=== PATIENT | female | born 1960 | race Caucasian/White ===

== ENCOUNTER 2016-08-08 09:00 | Emergency (ER) | payer OTHER ==
[~2016-08-08] VITALS: Ht 177.8 cm; Wt 90.9 kg
[~2016-08-08 09:00] MED LIST: ACET-2605 PO; CLIN-78 PO; HYDR-4003 PO; IBUP200C PO; MELO-259 PO
[2016-08-08 09:17] VITALS: BP 139/83; PULSE 74; RESP 14; O2SAT 100
--- NOTE | 2016-08-08 10:23 | ED.REPORT ---
HPI- Female Date of Service Aug 08, 2016 ED Provider: Sánchez Montelongo MD Patient presents with a 3 day history of progressing fullness and pressure in the vaginal area. Previously she had a colonoscopy which revealed a prolapsed bowel. She was sent to a specialist in [place] who saw the prolapse and was not concerned that time that it would progress. Although he stated that if progression became noted that the patient should follow-up with him. At this time she has no fevers chills nausea vomiting although she does have some abdominal pain on palpation. Nursing Notes Stated Complaint: VAGINAL ISSUE Chief Complaint: Female Abdominal Pain Nursing Notes Reviewed: Yes Allergies: Coded Allergies: No Known Allergies (Unverified , 08/08/16) Scheduled Acetaminophen/Diphenhydramine (Tylenol Pm Ex-Strength Caplet) 500 Mg-25 Mg Tablet 2 EACH PO HS Clindamycin (Clindamycin) 300 Mg Capsule 300 MG PO QID Scheduled PRN Hydrocodone-Acetaminophen 5-325 mg (Hydrocodone-Acetaminophen 5-325 mg) 1 Each Tablet 1 TABLET PO Q8H PRN PRN For Pain Ibuprofen (Ibuprofen) 200 Mg Capsule 200 MG PO QID PRN PRN For Pain Meloxicam (Meloxicam) 7.5 Mg Tablet 7.5-15 MG PO BID PRN PRN PRN General Time Seen by MD: 09:30 Chief Complaint Dysuria Hx Obtained From: Patient Sudden in Onset?: No Onset Occurred: 1 day ago Context of Onset: Spontaneous Symptom Duration: Since onset Quality: Fullness, Pressure Radiation: Does not radiate Severity: Current: No pain currently Past Medical History Past Medical History carpal tunnel Past Surgical History right ankle surgery nose reconstruction Recent Hep C diagnosis recurring cellulitis of the R lower limb Reports: Appendectomy, Cholecystectomy, Hysterectomy, Tonsillectomy Reports: Tubal ligation Smoking History Current Every Day Smoker 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 Physical Exam On pelvic exam grade 2 rectocele with some pain on palpation, however no redness swelling or other signs of infection this point. Initial Vital Signs Vital Signs (First) Date Time Temp Pulse Resp B/P Pulse Ox O2 Delivery O2 Flow Rate FiO2 08/08/16 09:17 35.6 74 14 139/83 100 Room Air General/Constitutional: Well-developed, Well-nourished Head / Eyes: Atraumatic, Normocephalic Respiratory: Breath sounds normal, Clear to auscultation, No respiratory distress Cardiovascular: Regular rate & rhythm, Heart sounds normal, Intact distal pulses Abdomen / GI: Soft, No guarding, No rebound, No distention Lymphatic: No lymphadenopathy Neurologic: Alert, Oriented, Nonfocal Psychiatric: Mood/affect normal, Behavior normal, Normal thought content Female Genitourinary: Atraumatic, No bleeding, No discharge, No foreign body Rectum / Perineum: No gross blood Rectum / Perineum Abnl: Positive: Hemorrhoid external Interpretation & Diagnostics Lab Results Interpretation Test 08/08/16 10:20 Urine Color Yellow (YELLOW) Urine Appearance Clear (CLEAR,HAZY) Urine pH 6.0 (5.0-8.0) Urine Specific [place] 1.015 (1.003-1.035) Urine Protein Negativemg/dL (NEG,TRACE) Urine Glucose (UA) Negativemg/dL (NEGATIVE) Urine Ketones Negativemg/dL (NEGATIVE) Urine Occult Blood Negative (NEGATIVE) Urine Nitrite Negative (NEGATIVE) Urine Bilirubin Negative (NEGATIVE) Urine Urobilinogen Normalmg/dL (NORMAL) Urine Leukocyte Esterase Small (NEGATIVE) Urine RBC 0-2/hpf (0-2) Urine WBC 0-5/hpf (0-5) Urine Epithelial Cells Occasional/hpf (NONE-MOD) Urine Crystals None seen (NONE SEEN) Urine Bacteria Few/hpf (NONE-FEW) Urine Hyaline Casts None/lpf (NONE) Urine Granular Casts None seen (NONE SEEN) Urine Waxy Casts None seen (NONE SEEN) Urine Red Blood Cell Casts None seen (NONE SEEN) Urine White Blood Cell Casts None seen (NONE SEEN) Urine Mucus None seen (None Seen) Urine Trichomonas None seen (NONE SEEN) Urine Yeast None (NONE SEEN) Urinalysis Comment None Urine Culture Reflexed Indicated Hold Urine Received (Received) Re-Eval/Medical Decision Med Decision/Clinical Course Pelvic exam reveals grade 2 rectocele. Palpation of the rectocele produced discomfort and was not reducible at this time. Patient was told to follow-up with previous specialist in [place] for resolution of rectocele. UA was ordered to rule out UTI since patient has urinary symptoms. Also post void residual volume ultrasound was ordered to ensure that the patient is adequately able to void completely. This showed 200 mL of residual volume, however it had been at least an hour since the patient had previously voided. Due to this and no concern for incontinence at this time Counseled Regarding: Diagnosis, Lab results, Need for follow-up, When/why to return to ED Discharge & Departure Shift Change Sign-Out Discussed Complaint(s): Yes Laboratory Evaluation: Back, reviewed by me Imaging Studies: Done, reviewed by me Impression: Primary Impression: Rectocele Disposition: Home Discharge Condition All VS Reviewed: Yes Condition: Stable Additional Instructions: Follow-up with specialist in [place] concerning rectocele (bowel in the vagina) Bladder scan some residual volume postvoid however we are not concerned for incontinence at this time. If symptoms become worse in you are unable to urinate please contact the emergency department soon as possible Referrals: Rui Garcia MD (PCP) Attending Statement Seen and examined with Dr Demarco on 08/08. Agree with above. Collin Demarco DO Aug 08, 2016 10:22 Sánchez Montelongo MD Aug 08, 2016 19:12
[2016-08-08 11:16] LABS: APPEARANCE,URINE CLEAR (CLEAR,HAZY); COLOR,URINE YELLOW (YELLOW); OCCULT BLOOD,URINE NEGATIVE (NEGATIVE); UROBILINOGEN,URINE NORMAL (NORMAL)
[2016-08-08 12:42] VITALS: BP 164/98; PULSE 76; RESP 15; O2SAT 100
== END 2016-08-08 12:21 | disposition home or self-care (01) ==
LOC: SED 09:00
DX: N81.6 Rectocele (principal); B19.20 Unspecified viral hepatitis C without hepatic coma; F17.200 Nicotine dependence, unspecified, uncomplicated; Z90.49 Acquired absence of other specified parts of digestive tract; Z90.710 Acquired absence of both cervix and uterus; Z98.51 Tubal ligation status; Z90.89 Acquired absence of other organs

== ENCOUNTER 2016-08-16 15:46 | Emergency (ER) | payer OTHER ==
[~2016-08-16] VITALS: Ht 180.3 cm; Wt 90.9 kg
[2016-08-16 15:50] VITALS: BP 155/103; PULSE 77; RESP 18; O2SAT 100
--- NOTE | 2016-08-16 16:42 | ED.REPORT ---
HPI-Extremity Problem Lower Date of Service Aug 16, 2016 ED Provider: Sánchez Montelongo MD The patient is a 56 year old female w/ a hx of right ankle surgery and recurrent staph infections who presents to the ED due to right ankle pain for the past few days. She has had staph 4 times previously, the last infection was in 2014. Associated symptoms include right ankle swelling, redness, and tenderness. She confirms that these symptoms are similar to her previous staph infections. She denies fever. Pt drove herself to the ED. She has a doctor's appointment on the of the month. She takes long acting morphine for pain. Nursing Notes Stated Complaint: RIGHT ANKLE PAIN Chief Complaint: Extremity Trauma Nursing Notes Reviewed: Yes Allergies: Coded Allergies: No Known Allergies (Unverified , 08/16/16) Scheduled Acetaminophen/Diphenhydramine (Tylenol Pm Ex-Strength Caplet) 500 Mg-25 Mg Tablet 2 EACH PO HS Clindamycin (Clindamycin) 300 Mg Capsule 300 MG PO QID Scheduled PRN Hydrocodone-Acetaminophen 5-325 mg (Hydrocodone-Acetaminophen 5-325 mg) 1 Each Tablet 1 TABLET PO Q8H PRN PRN For Pain Ibuprofen (Ibuprofen) 200 Mg Capsule 200 MG PO QID PRN PRN For Pain Meloxicam (Meloxicam) 7.5 Mg Tablet 7.5-15 MG PO BID PRN PRN PRN General Time Seen by MD: 16:41 Chief Complaint Ankle injury right Hx Obtained From: Patient Arrived By: Walk-in Onset Occurred: 3 days ago Symptom Duration: Since onset Location: : Ankle right Quality: Painful Severity: Current: Moderate Recent Healthcare: Recent doctor visit, Previous surgery Similar Sx Previous: Yes Past Medical History Past Medical History carpal tunnel Past Surgical History right ankle surgery nose reconstruction Recent Hep C diagnosis recurring cellulitis of the R lower limb Reports: Appendectomy, Cholecystectomy, Hysterectomy, Tonsillectomy Reports: Tubal ligation Smoking History Current Every Day Smoker 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 Physical Exam Initial Vital Signs Vital Signs (First) Date Time Temp Pulse Resp B/P Pulse Ox O2 Delivery O2 Flow Rate FiO2 08/16/16 15:50 36.8 77 18 155/103 100 08/16/16 17:50 Room Air Initial VS: Reviewed Right Leg / Calf: Positive: Swelling present..., Tenderness present... Right Ankle: Positive: Swelling present..., Tenderness present... right ankle exquisitely tender to touch superficial abscess overlying the lateral malleolus General/Constitutional: Awake, Alert, Cooperative Respiratory / Chest: Atraumatic, Breath sounds NL, Breath sounds = bilat, No respiratory distress Cardiovascular: Heart rate NL, Regular rhythm, Heart sounds NL, No gallop, No murmurs, No rubs Skin: Atraumatic, No rash Neurologic: Oriented X3, Speech NL, No motor deficits Head / Eyes: Atraumatic, Normocephalic, PERRL, EOMI Abdomen: Atraumatic, Soft, Non-tender Interpretation & Diagnostics Lab Results Interpretation Result Diagram: 08/16/16 1640 08/16/16 1640 Test 08/16/16 16:40 08/16/16 17:23 White Blood Count 4.3th/mm3 (3.8-10.1) Red Blood Count 3.96mil/mm3 (3.90-5.20) Hemoglobin 12.6g/dL (12.0-15.6) Hematocrit 37.0% (35.0-46.0) Mean Corpuscular Volume 93.4fL (81-100) Mean Corpuscular Hemoglobin 31.8pg (27.0-35.0) Mean Corpuscular Hemoglobin Concent 34.1% (32.0-37.0) Red Cell Distribution Width 12.8% (12.3-15.4) Platelet Count 98bil/L (150-400) Neutrophils (%) (Auto) 44.8% (40-74) Lymphocytes (%) (Auto) 42.4% (14-46) Monocytes (%) (Auto) 11.7% (4-12) Eosinophils (%) (Auto) 0.7% (0-5) Basophils (%) (Auto) 0.2% (0-3) Erythrocyte Sedimentation Rate 8mm/hr (0-40) Prothrombin Time 12.7sec (8.1-12.5) Prothromb Time International Ratio 1.18ratio Sodium Level 141mEq/L (134-144) Potassium Level 4.9mEq/L (3.5-5.2) Chloride Level 105mEq/L (97-108) Carbon Dioxide Level 22mmol/L (18-29) Blood Urea Nitrogen 16mg/dL (6-24) Creatinine 0.65mg/dL (0.57-1.00) Estimat Glomerular Filtration Rate 134mL/min (>59) Glucose Level 90mg/dL (60-99) Lactic Acid Level 1.1mmol/L (0.4-2.0) Calcium Level 9.8mg/dL (8.5-10.1) Magnesium Level 2.2mg/dL (1.6-2.6) Total Bilirubin 0.6mg/dL (0.0-1.2) Aspartate Amino Transf (AST/SGOT) 167U/L (0-50) Alanine Aminotransferase (ALT/SGPT) 110U/L (0-32) Alkaline Phosphatase 133U/L (25-150) C-Reactive Protein 0.1mg/dL (0.0-0.5) Total Protein 7.3g/dL (6.4-8.4) Albumin 4.0g/dL (3.4-5.0) Hold Urine Received (Received) X-Ray Interpretation Xray Interpretation: IMPRESSION: Postsurgical and degenerative change. Although no bony erosions are identified, plain film radiography is relatively insensitive in the acute phases of osteomyelitis and may not demonstrate radiographic changes for 15 days. If acute osteomyelitis is of clinical concern, nuclear medicine regional bone scan or MRI is recommended. Dictated by: Lottie Ragland M.D. on 08/16/2016 at 17:27 Approved by: Lottie Ragland M.D. on 08/16/2016 at 17:29 X-Ray Ordered: Ankle right Interpretation / Wet Read by: Interpret - Radiologist Procedures Incision & Drainage Abscess Time: 20:43 Procedure Performed by: ED physician Consent / Setup / Site Prep: Informed consent provided, Consent from patient , Hand hygiene observed, Stand sterile technique, Standard surgical scrub, Sterile drapes applied Location of Abscess: right ankle Skin Preparation Agent: Betadine Local Anesthesia: Lidocaine 1% Post-Procedure / Complications: Packing placed, Culture obtained, Dressing applied, No complications, Condition improved, Tolerated procedure well, Patient stable Re-Eval/Medical Decision Re-Evaluation/Progress #1: Time of Eval: 16:49 Re-Evaluation/Progress Note: Plan for pain medication and right ankle x-ray. Re-Evaluation/Progress #2: Time of Eval: 18:24 Patient Status: Condition improved, Pain improved Re-Evaluation/Progress Note: Pt reports her pain is improved slightly. On examination she is still extremely tender to touch. Consultation : Referral / Consult Name: Johnathan Ny MD Consulted With: Orthopedic Call Returned at: 18:27 Graduate Assistant: Agrees with eval, Agrees with plan Note: Case discussed. Dr. Ny agrees with plan. Counseled Regarding: Diagnosis, Lab results, Need for follow-up, When/why to return to ED Discharge & Departure Departure Notes Diastolic hypertension resolved at discharge. Culture from the abscess sent Impression: Primary Impression: Abscess of right lower leg Disposition: Home Discharge Condition All VS Reviewed: Yes Condition: Stable Patient Instructions: Abscess Incision and Drainage (GEN) Additional Instructions: Thank you for entrusting us with your care today. Emergency Department evaluation included interview, examination, labs, and ankle x-ray. There was a small abscess in your ankle. I have applied antibiotic ointment and dressed the wound. Elevate your ankle when you are able. I am sending you home the antibiotic, Bactrim and oxycodone to take as directed for pain. Do not drink alcohol, do drugs, drive, or operate machinery while on narcotics. Plan to follow up with primary care and Dr. Jones within the next week. If you can't get an appointment within this time, return to the emergency department. Come back if you experience any new or worsening symptoms including any signs of infection such as redness, warmth, swelling, fever, increased pain, and weakness. Referrals: Sage De Leon MD (PCP) Jairo Jones MD, Christopher L MD Scribe Attestation Portion of this note were transcribed by Kandis Lomeli. I, Dr. Montelongo, personally performed the history, physical exam, and medical decision-making: I reviewed and confirmed the accuracy for the information in the transcribed note. Signed by: heladio Mendez, 08/16/16 1800 copies to: Sage De Leon MD; Jairo Jones MD; Johnathan Ny MD, Donald L MD Aug 16, 2016 16:42 Kandis Lomeli Aug 16, 2016 16:51
[2016-08-16 16:56] LABS: BASOPHILS % (AUTO) 0.2 % (0-3); EOSINOPHILS % (AUTO) 0.7 % (0-5); MONOCYTES % (AUTO) 11.7 % (4-12); Mean Corpuscular Hemoglobin 31.8 pg (27.0-35.0); Mean Corpuscular Volume 93.4 fL (81-100); NEUTROPHILS % (AUTO) 44.8 % (40-74); Platelet Count 98 bil/L (150-400)
[2016-08-16 17:04] LABS: INR 1.18 ratio
[2016-08-16 17:11] LABS: Magnesium 2.2 mg/dL (1.6-2.6)
[2016-08-16] MEDS: HYDROmorphone 1 mg/mL Inj IVPUSH PRN ×3 (17:18→19:20)
--- NOTE | 2016-08-16 17:37 | DRSVH ---
PROCEDURE: X-RAY RIGHT ANKLE, MINIMUM THREE VIEWS ([id number]) INDICATIONS: right ankle pain and swelling, recurrent cellulitis TECHNIQUE: 3 views of the ankle were acquired. COMPARISON: None. FINDINGS: Bones: Patient is status post distant ORIF of the distal tibia. No acute fracture dislocation. Degene rative changes are present the mortise joint. No discrete bony erosion or cortical thinning. Soft tissues: No tibiotalar joint effusion. Achilles tendon appears normal. Mild lateral malleolar soft tissue swelling. IMPRESSION: Postsurgical and degenerative change. Although no bony erosions are identified, plain rose m radiography is relatively insensitive in the acute phases of osteomyelitis and may not demonstrate radiographic changes for 15 days. If acute osteomyelitis is of clinical concern, nuclear medicine re gional bone scan or MRI is recommended. Dictated by: Lottie Ragland M.D. on 08/16/2016 at 17:27 Approved by: Lottie Ragland M.D. on 08/16/2016 at 17:29
[2016-08-16 17:50] VITALS: BP 146/85; PULSE 71; RESP 16; O2SAT 99
[2016-08-16 20:15] VITALS: BP 134/81; PULSE 61; RESP 16; O2SAT 98
[2016-08-16] MEDS ORDERED: _oxyCODONE/APAP 5-325 mg Tablet PO PRN (21:10)
[2016-08-16] MEDS ORDERED: _Trimethoprim-Sulfa 160/800 mg Tablet PO SCH (21:10)
[2016-08-16 21:28] VITALS: BP 145/76; PULSE 58; RESP 16; O2SAT 97
[2016-08-16 21:34] VITALS: BP 145/76; PULSE 58; RESP 16; O2SAT 97
== END 2016-08-16 21:20 | disposition home or self-care (01) ==
LOC: SED 15:46
DX: L02.415 Cutaneous abscess of right lower limb (principal); F17.200 Nicotine dependence, unspecified, uncomplicated; Z86.14 Personal history of Methicillin resistant Staphylococcus aureus infection
CPT/HCPCS: 10061; 36415; 73610; 80053; 83605; 83735; 85025; 85610; 85651; 86140; 87070; 87075; 87077; 87186; 87205; 96374; 99284; J1170

== ENCOUNTER 2016-11-06 10:49 | Day surgery (SDC) | payer OTHER ==
[2016-11-06] VITALS (9 sets, daily range): BP systolic 113–146; BP diastolic 57–87; PULSE 66–76; RESP 10–19; O2SAT 96–100
[~2016-11-06] VITALS: Ht 177.8 cm; Wt 94.7 kg
[2016-11-06] MEDS: CeFAZolin 2 Gm/50 mL D5W IV Premix IV SCH ×2 (06:00→14:56)
[~2016-11-06 10:49] MED LIST changes: -CLIN-78 PO; +CYCL10TA9 PO; +CeFAZolin Inj 2 GM in IV Premix 1 EACH IV ONE; -HYDR-4003 PO; -IBUP200C PO; +LAMO25TA PO; +Lactated Ringer's 1,000 ML IV SCH; -MELO-259 PO; +MS30TCR PO; +NPR500T PO; +ONDA-53 PO; +POLY17PO6 PO; +PREC VG; +PREG50CA PO; +SOFO1TAB PO
[2016-11-06] MEDS ORDERED: Succinylcholine Chloride 20 mg/mL 5 mL Inj ONE (10:50)
[2016-11-06] MEDS ORDERED: HYDROmorphone 1 mg/mL Inj ONE (10:50)
[2016-11-06] MEDS ORDERED: Dexamethasone 4 mg/mL Inj ONE (10:50)
[2016-11-06] MEDS ORDERED: Rocuronium 10 mg/mL 5 mL Inj ONE (10:50)
[2016-11-06] MEDS ORDERED: Neostigmine 1 mg/mL 10 mL Inj ONE (10:50)
[2016-11-06] MEDS ORDERED: fentaNYL-PF 50 mCg/mL 2 mL Inj ONE (10:50)
[2016-11-06] MEDS ORDERED: Propofol 10,000 mCg/mL 20 mL Inj ONE (10:50)
[2016-11-06] MEDS ORDERED: Ondansetron 2 mg/mL 2 mL Inj ONE (10:50)
[2016-11-06] MEDS ORDERED: Glycopyrrolate 0.2 MG/ML 1mL Inj ONE (10:50)
[2016-11-06] MEDS ORDERED: Lactated Ringer's 1,000 ML IV ONE (11:30)
[2016-11-06 14:34] LABS: Mean Corpuscular Hemoglobin 31.3 pg (27.0-35.0); Mean Corpuscular Volume 91.3 fL (81-100)
[2016-11-06] MEDS ORDERED: Lactated Ringer's 500 ML IV PRN (14:36)
[2016-11-06] MEDS ORDERED: Lactated Ringer's 1,000 ML IV SCH (14:36)
--- NOTE | 2016-11-06 14:36 | PCM.HPANE ---
Patient Data Surgeon Admitting Provider: Attending Provider:Juan Upton MD Primary Care Physician:Sage De Leon MD Other Provider:Nita Ramosingham Anesthesia Reason for Visit Female Genital Prolapse, Rectocele Ht/WT & BMI Height (Feet): 5 Height (Inches): 10.00 Weight (Kilograms): 92.300 Body Mass Index 29.00 Allergies Coded Allergies: No Known Allergies (Unverified , 11/01/16) Past Anesthesia History Anesthesia History: Denies:: Abnormal Airway, Anesthesia Reactions, Difficult Intubation, Fam Anesthesia Reaction, Malignant Hyperthermia Diabetes History Hx Diabetes?: No MRSA MRSA: No Medications Hypertension Medication: No Home Meds Incl Beta Shawn: No Reported Medications Acetaminophen/Diphenhydramine (Tylenol Pm Ex-Strength Caplet)500 Mg-25 Mg Tablet1 Each PO DAILY 11/01/16 Estrogens Conjugated (Premarin)1 Gm Vagcream0.5 Gm VG 2xweek #1 TUBE Ref 0 11/01/16 Polyethylene Glycol 3350 (Miralax)17 Gm Powd.pack17 Gm PO DAILY 11/01/16 Ondansetron 4 Mg Tablet4 Mg PO PRN For Nausea 11/01/16 Naproxen 500 Mg Vaj309 Mg PO BID PRN For Pain Ref 0 11/01/16 Morphine Sulfate ER (MS Contin)30 Mg Tablet.er30 Mg PO BID Ref 0 11/01/16 Pregabalin (Lyrica)50 Mg Lsmldvh31 Mg PO TID 30 Days Ref 0 11/01/16 Lamotrigine 25 Mg Sdypkz97 Mg PO BID Ref 0 11/01/16 Sofosbuvir/Velpatasvir (Epclusa 400 mg-100 mg Tablet)400 Mg-100 Mg Tablet1 Each PO DAILY 11/01/16 Cyclobenzaprine 10 Mg Ecwvzb53 Mg PO HS PRN Spasm Ref 0 11/01/16 Discontinued Reported Medications Acetaminophen/Diphenhydramine (Tylenol Pm Ex-Strength Caplet)500 Mg-25 Mg Tablet2 Each PO HS 12/30/14 Meloxicam 7.5 Mg Tablet7.5-15 Mg PO BID PRN PRN 30 Days Ref 0 12/30/14 Hydrocodone-Acetaminophen 5-325 mg 1 Each Tablet1 Tablet PO Q8H PRN For Pain Ref 0 12/30/14 Ibuprofen 200 Mg Ihtefpe343 Mg PO QID PRN For Pain Ref 0 12/30/14 Clindamycin 300 Mg Rpieajg301 Mg PO QID Ref 0 12/30/14 History History of ENT Problems?: Yes HEENT History: Positive for:: Sinus Problem (hx of nasal surgery) Denies:: Abnormal Airway Cataracts Difficult Intubation Dysphagia Glaucoma Hearing Problem TMJ Denture Type: Full- Upper Teeth Condition: Within Normal Limits Hx of Heart Problems?: No Cardiovascular History: Denies:: AICD Abdominal Aortic Aneurism Atrial Fibrillation Cardiac Surgery Chest Pain Congestive Heart Failure Coronary Artery Disease Edema Heart Murmur Hypertension Irregular Heartbeat Pacemaker Peripheral Vascular Rheumatic Fever Thrombophlebitis Valvular Heart Disease Hx of Respiratory Problem?: No Respiratory History: Denies:: Asthma COPD Chest Surgery Cough Dyspnea Emphysema Hemoptysis Oxygen Administration Pneumonia Pulmonary Embolism Tuberculosis Use of C-PAP Machine Use of Inhalers / NEBS Other Resp Pertinent History: Former smoker, quit 7 months ago Hx Neurologic Problems?: No Neurological History: Denies:: CVA Headaches Multiple Sclerosis Parkinson's Disease Seizures TIA Hx of GI Problems?: Yes Gastrointestinal History: Positive for:: Hepatitis Hx of Problems?: Yes Genitourinary History: Denies:: Kidney Stones Urinary Tract Infection Female Hx: Denies:: Currently (HX HYSTERECTOMY) Skin History: Denies:: History Skin Disorders? Pressure Ulcers Hx Musculoskeletal Problems?: Yes Musculoskeletal History: Positive for:: Back Injury (chronic back pain, no prior surgery or injections) Musculoskeletal Trauma (hx of right ankle ORIF- hardware removal) Denies:: Fibromyalgia Osteoarthritis Systemic Lupus Hx of Psycho/Social Problems?: Yes Psycho Social History: Positive for:: Bipolar Disorder Hx Surgeries?: Yes (RT ANIKLE RPR,REMOVAL RT ANKLE HDWRE,APPY,CHELO,HYST, TONSILS,NASAL RECONSTR) Hx Any Other Health Problems?: Yes Other History: Denies:: Cancer Endocrine Disease Hospitalization Thyroid Disease History Blood Transfusions: Positive for:: Accept Blood Products? Denies:: Blood Transfusions Hx Diabetes: No Hx Alcohol Use: No (quit 7 months ago)Hx Substance Use: No Smoking Status: Current Every Day Smoker Have You Smoked inLast 12 mo: Yes (quit 7 months) Stop/Bang S-Snoring: Do You Snore Loudly: No T-Tired: feel tired, fatigued: Yes O-Obsered: Observed not breath: No P-Blood Pressure: treated: No B- Body Mass Index > 35 kg/m2: No A- Age over 50: Yes N- Neck Large Circumference: No G- Gender Male: No SHELLEY Total Score: 2 SHELLEY Risk Assessment: Low Risk, <3 Yes Risk Assessment Category Category 1A: Patient has history of documented sleep apnea, and HAS NOT received any narcotic, sedative or anesthesia administration during this stay. Category 1B: Patient has history of documented sleep apnea, and HAS received any narcotic , sedative or anesthesia administration during this stay Category 2: Patient has SUSPECTED Obstructive Sleep Apnea, and HAS received any narcotic , sedative or anesthesia administration during this stay. Category 3: Patient has SUSPECTED Obstructive Sleep Apnea and HAS NOT received narcotic, sedative or anesthesia administration during this stay. Category 4: Outpatient in Procedural Areas with known sleep apnea or who screen positive for High Risk via the STOP/BANG questionnaire. Exam Exam Vital Signs Vital Signs Date Time Temp Pulse Resp B/P Pulse Ox O2 Delivery O2 Flow Rate FiO2 11/06/16 11:18 36.4 74 15 136/74 96 Room Air General Appearance: Alert, Oriented X3, Cooperative, No Acute Distress HEENT/AIRWAY: MP 2 Lungs: Clear to Auscultation, Normal Air Movement Heart: Exam Unremarkable, Regular Rate/Rhythm, No Murmurs/Rubs/Gallops Meds/Labs/Diagnostics Admission Meds Current Medications Lactated Ringer's (Lr) 1,000 ml @ ud STK-MED ONCE IV Last administered on 11/06t 11:30; Start 11/06/16 at 11:30; Stop 11/06/16 at 12:21; Status DC Plan Impression Patient chart reviewed, patient interviewed and anesthestic plan with risks, benefits, and alternatives discussed, and informed consent obtained. NPO per Anesth. Guidelines: Yes ASA Physical Status: ASA3 Severe Disease Anesthetic Plan: GA Bene/Risks/Altern/Consents: Yes HP Complete Prior to Induction: Yes Myles Lew MD Nov 06, 2016 13:19
[2016-11-06] MEDS ORDERED: Phenylephrine 10,000 mCg/mL Inj IVPUSH PRN (14:40)
[2016-11-06] MEDS ORDERED: HYDROmorphone 1 mg/mL Inj IVPUSH PRN (14:40)
[2016-11-06] MEDS ORDERED: MetoCLOpramide 5 mg/mL 2 mL Inj IVPUSH PRN (14:40)
[2016-11-06] MEDS ORDERED: fentaNYL-PF 50 mCg/mL 2 mL Inj IVPUSH PRN (14:40)
[2016-11-06] MEDS ORDERED: Atropine 0.4 mg/mL Inj IVPUSH PRN (14:40)
[2016-11-06] MEDS ORDERED: Ondansetron 2 mg/mL 2 mL Inj IVPUSH PRN ×2 (14:40→17:20)
[2016-11-06] MEDS ORDERED: EPHEDrine Sulfate 50 mg/mL Inj IVPUSH PRN (14:40)
[2016-11-06] MEDS ORDERED: Labetalol 5 mg/mL 20 mL Inj IV PRN (14:40)
[2016-11-06] MEDS ORDERED: Vasopressin 20 Unit/mL Inj SUBQ ONE (15:11)
[2016-11-06] MEDS ORDERED: Gentamicin 40 mg/mL 2 mL Inj IRRIGATION ONE (15:11)
[2016-11-06] MEDS ORDERED: Bupivacaine-MPF 0.5% 30 mL Inj INFILTRATE ONE (16:58)
[2016-11-06] MEDS ORDERED: Acetaminophen IV 1,000 MG in IV Premix 1 EACH IV PRN (17:20)
[2016-11-06] MEDS ORDERED: Senna-Docusate 8.6-50 mg Tablet PO PRN (17:20)
[2016-11-06] MEDS ORDERED: Alum-Mag Hydrox-Simeth 30 mL Suspension PO PRN (17:20)
--- NOTE | 2016-11-06 17:21 | PCM.ANEP1 ---
Post Anesthesia PACU Phase 1 Assessment Vital Signs Vital Signs Date Time Temp Pulse Resp B/P Pulse Ox O2 Delivery O2 Flow Rate FiO2 11/06/16 17:13 36.1 70 10 121/61 99 Simple Mask 8 11/06/16 11:18 36.4 74 15 136/74 96 Room Air Anesthetic Administered: GA Level of Alertness: Sleeping, hard to arouse PERKINS's with Equal Strength: Yes Pain: No Nausea or Vomiting: No CV Function & Hydration Stable: Yes Airway Device: Oralpharangeal Airway Oxygen Delivery: Simple Mask Lungs: Clear to Auscultation, Normal Air Movement PACU Phase 2 Assessment Complications: No Follow up Care: N/A Patient Instructions Provided: N/A Myles Lew MD Nov 06, 2016 17:21
[2016-11-06] MEDS: Lactated Ringer's 1,000 ML IV SCH (20:25)
[2016-11-06] MEDS: Senna-Docusate 8.6-50 mg Tablet PO SCH (20:28)
--- NOTE | 2016-11-06 20:33 | OP ---
[address] [address] OPERATIVE REPORT PATIENT: STACY BONNER : 1960 MR#: [id number] ADMIT: 11/06/2016 JOB ID: [id number] DATE OF SURGERY: 11/06/2016 PROCEDURE: Posterior colporrhaphy and placement of mid urethral transobturator sling. PREOPERATIVE DIAGNOSIS(ES): Rectocele stress urinary incontinence. POSTOPERATIVE DIAGNOSIS(ES): Rectocele stress urinary incontinence. SURGEON: Juan Upton MD. INBOUND CUSTOMER SERVICE REPRESENTATIVE: Zulema Muñoz MD. Assistance of Dr. Muñoz was necessary for proper retraction and visualization of anatomical structures providing exposure during the posterior colporrhaphy and placement of mid urethral sling. ANESTHESIA: General. Myles Lew MD ESTIMATED BLOOD LOSS: 50 mL. ESTIMATED URINE OUTPUT: 250 mL. FLUID: 700 mL of lactated Ringer. COMPLICATIONS: None. FINDINGS: Grade 3 rectocele, grade 1 cystocele and grade 1 vaginal cuff prolapse, mild: No need in suspension. Normal appearance of the perineum and anterior fourchette of the vagina. PROCEDURE IN DETAIL: The patient was brought to the operating room, where she underwent general anesthesia without difficulties. The patient received preoperative antibiotics. She was prepped and draped in usual surgical fashion. She was placed in the dorsal lithotomy position using Naveen stirrups. Time-out was performed verifying correct patient, correct procedure. Pelvic exam was performed with the findings mentioned above. The López catheter was placed prior to the procedure and removed at the end of it. Two Allis clamps were placed on both sides of the perineal body posteriorly and the area of the rectocele was injected with solution of vasopressin and normal saline. Twenty units of vasopressin were diluted in 100 mL of normal saline, total of 75 mL of the solution, 15 units of vasopressin were used during the surgery. Using scalpel, a transverse incision was made and 2 Allis clamps overlying the perineal body and with Metzenbaum scissors dissection was provided in a sagittal plane over the area of the rectocele. Sagittal incision was made with the Metzenbaum scissors. Several Allis clamps were placed in the right and left part of the incision and using Metzenbaum scissors, the vaginal mucosa was from the underlying endopelvic fascia and surrounding tissue. The residual vaginal mucosa was trimmed. The repair was started from the apex of the vaginal cuff. Three layers of plicating 2-0 Vicryl sutures were placed to reduce the rectocele. When the rectocele repair was complete, the vaginal mucosa was reapproximated with 2-0 Vicryl suture in a running, locking fashion. After posterior repair was complete, mid urethral transobturator sling was placed. With the López catheter inside of the bladder, Pitressin solution was injected in the area of the mid urethra. Sagittal incision was made with a scalpel. Two Allis clamps were placed in the right and left part of the incision and with Metzenbaum scissors, dissection was made at 45 degrees in the vertical and horizontal plane towards the ramus of the pubic bone on both sides. The skin entry points for the Ryley transobturator sling were marked. The markings were made at the level of the clitoris on the patient's right and left side 1 cm inferior and laterally from the insertion of the adductor longus muscle. The skin was perforated with an 11 scalpel. Local injection of Marcaine was provided on both sides. Using helical needle with rotating motion from the outside to the inside, the obturator membrane was perforated and the needle came out at the level of the mid urethra. The same was done on the patient's contralateral side. The Ryley sling was attached to both needles and with a backward motion, it was placed tension-free in the mid urethra. The tape was trimmed at the skin level and two 2-0 Vicryl sutures were placed to reapproximate the skin at the entry points of the patient's left and right side. The cystoscopy was performed using a 70-degree scope. Bladder mucosa looked normal. Both ureteral jets were seen. The urethra looked normal as well. The cystoscope was removed and López catheter was replaced back. Mid urethral incision was reapproximated with 2-0 Vicryl in a running, locking fashion. Prior to reapproximation, FloSeal solution was injected on both sides to provide better hemostasis. The vaginal packing was placed using 3 inch thick tape soaked in Premarin cream. The patient was repositioned back into the supine position. She tolerated the procedure well and was transferred to the recovery room in a stable condition. MTDD
--- NOTE | 2016-11-06 22:28 | PCM.PNSURG ---
Subjective Date of Service: Nov 06, 2016 Date of Service: Nov 06, 2016 Visit Information: Reason for Visit Female Genital Prolapse, Rectocele Surgery/Surgery Date SLING/RECTOCELE REPAIR 11/06/16 Post-Op Day # Date of Admission: 11/06/2016 Hospital Day # 1 Requested by Nursing Staff to renew pre-op meds omitted in post-op orders. Subjective: Patient expresses concern over availability of Cyclobenzaprine, Lamotrigine, Pregabalin. Objective Objective Patient not examined at this visit. Vital Sign- Last 8 Hours Date Time Temp Pulse Resp B/P Pulse Ox O2 Delivery O2 Flow Rate FiO2 11/06/16 19:25 36.5 67 17 146/87 99 Room Air 11/06/16 18:46 36.6 70 19 117/69 100 Room Air 11/06/16 18:00 36.9 70 11 127/57 99 Room Air 11/06/16 17:56 72 14 129/66 98 Room Air 11/06/16 17:47 76 18 130/68 98 Room Air 11/06/16 17:34 71 14 113/57 99 Simple Mask 8 11/06/16 17:21 Simple Mask 11/06/16 17:19 66 14 115/59 99 Simple Mask 8 11/06/16 17:13 36.1 70 10 121/61 99 Simple Mask 8 Result Diagram: 11/06/16 1425 Assessment & Plan Plan Cyclobenzaprine 10 mg, Lamotrigine 50 mg, and Pregabalin 50 mg renewed at pre- admission dosing schedule. Time Spent: 15 minutes Ulises García MD Nov 06, 2016 22:28
[2016-11-06] MEDS: lamoTRIgine 25 mg Tablet PO SCH (23:43)
[2016-11-06] MEDS: oxyCODONE-Acetamin 5-325 mg Tablet PO PRN (23:48)
[2016-11-07] VITALS: BP 155/88; PULSE 74; RESP 21; O2SAT 95
--- NOTE | 2016-11-07 03:43 | NUR ---
POST OP Patient was assessed and oriented to room by day RNSherice, post op. Upon initial assessment, patient was anxious about her home medications being ordered. MD made aware and orders placed for meds. Patient continued to present as anxious and tearful until she fell asleep. Appears to be resting comfortably at this time. Vag packing and quiros to be removed later this morning.
[2016-11-07] MEDS: Lactated Ringer's 1,000 ML IV SCH ×2 (04:30→09:16)
[2016-11-07 04:35] VITALS: BP 112/68; PULSE 69; RESP 18; O2SAT 95
[2016-11-07 06:06] LABS: BASOPHILS % (AUTO) 0 % (0-3); EOSINOPHILS % (AUTO) 0 % (0-5); MONOCYTES % (AUTO) 4.9 % (4-12); Mean Corpuscular Hemoglobin 31.5 pg (27.0-35.0); Mean Corpuscular Volume 89.1 fL (81-100); NEUTROPHILS % (AUTO) 80.9 % (40-74); Platelet Count 101 bil/L (150-400)
[2016-11-07] MEDS: Senna-Docusate 8.6-50 mg Tablet PO SCH (08:45)
[2016-11-07] MEDS: lamoTRIgine 25 mg Tablet PO SCH (08:45)
[2016-11-07] MEDS: oxyCODONE-Acetamin 5-325 mg Tablet PO PRN ×2 (09:04→13:57)
[2016-11-07 09:56] VITALS: BP 95/61; PULSE 67; RESP 18; O2SAT 98
--- NOTE | 2016-11-07 14:30 | NUR ---
POST-OP PROGRESS Percocet 2 tabs PO has been adequate for pain control. Tolerating liquids PO and her diet well. Denies nausea. No emesis noted. Denies SOB. Voided X 1 after IFC removal. 200+ of UO noted. PVR-163. Dr. Upton paged. No call back at this time. Ambulated with SBA in the room and she tolerated it well.
--- NOTE | 2016-11-07 16:28 | PCM.DIMED ---
Discharge Instructions Date of Service Nov 07, 2016 Dates of Hospitalization Diet Discharge Diet: No restrictions Activity Discharge Activity: No restrictions Call your provider Call your provider for: Fever or Chills, Shortness of breath, Bleeding, Chest pain, Vomitting, Excessive diarrhea, Weakness (unilateral) Patient Instructions Follow-up with PCP in: 2 weeks Juan Upton MD Nov 07, 2016 16:28
[2016-11-07] MEDS ORDERED: OXYC-530 PO (16:31)
[2016-11-07] MEDS ORDERED: DOCU-41 PO ×2 (16:31→16:43)
[2016-11-07] MEDS ORDERED: Ibuprofen PO ×2 (16:31→16:43)
[2016-11-07] MEDS ORDERED: OXYC1TAB24 PO (16:43)
--- NOTE | 2016-11-07 17:17 | NUR ---
Discharge Pt discharged with friend to home. Pt repeated back all discharge instructions to this nurse and indicates understanding of discharge plan. Scripts for dousate, motrin and percocet given. DC at [phone]
--- NOTE | 2016-11-07 20:10 | DIS ---
[address] [address] DISCHARGE SUMMARY PATIENT: STACY BONNER : 1960 MR#: [id number] ADMIT: 11/06/2016 JOB ID: [id number] DIS: 11/07/2016 ADMITTING DIAGNOSIS: Rectocele, stress urinary incontinence. DISCHARGE DIAGNOSES: Rectocele, stress urinary incontinence. HOSPITAL COURSE: The patient is a 56-year-old who was admitted to the hospital for the surgery posterior colporrhaphy and mid urethral transobturator sling placement on November 06, 2016. The surgery went uncomplicated. Estimated blood loss was 50 mL. The patient had cystoscopy at the end of the procedure that confirmed intact bladder mucosa and urethra, and proper placement of the sling. She was kept overnight for pain management and management of anxiety and observation. In the morning postoperative day one, November 07, 2016, the patient was doing well, ambulating, tolerating regular food. The López catheter was removed and the vaginal packing was removed as well. There was no bleeding. The pain was well controlled, was mild. Her vital signs where temperature 36.7, pulse 67, respiratory rate 18, blood pressure 95/61. The abdomen was soft, nontender, nondistended. The TOT skin insertion point incisions were dry and clean. The urine was clear. She has not had any vaginal spotting or abnormal vaginal discharge. Postoperative CBC on postoperative day one showed WBC count of 9.8, hemoglobin 12.4, hematocrit 35.1, platelet count 101. After the López catheter was removed. The patient was able to void. Postvoid residual was checked and was 163 mL. The patient was willing to go home. She was sent home with precautions discussed. She was instructed to present to the clinic if she has any difficulty voiding. The patient received discharge medications including Percocet 5/325 mg p.o. q.i.d. p.r.n., Motrin 800 mg p.o. t.i.d. p.r.n., and Colace 100 mg p.o. b.i.d. Followup visit in the clinic is scheduled in two weeks.
== END 2016-11-07 17:20 | disposition home or self-care (01) ==
LOC: SAS 10:49 → OSC 18:21 → SAS 11-07 17:20
PROVIDERS: ATTEND Legal Medicine
DX: N99.3 Prolapse of vaginal vault after hysterectomy (principal); N81.6 Rectocele; N39.46 Mixed incontinence; K21.9 Gastro-esophageal reflux disease without esophagitis; M54.9 Dorsalgia, unspecified; F31.9 Bipolar disorder, unspecified; B18.2 Chronic viral hepatitis C; Z79.891 Long term (current) use of opiate analgesic; Z90.710 Acquired absence of both cervix and uterus; Z85.41 Personal history of malignant neoplasm of cervix uteri; Z87.891 Personal history of nicotine dependence
CPT/HCPCS: 36415; 57250; 57288; 85025; 85027; C1771; J0330; J0690; J1100; J1170; J1580; J1885; J2250; J2405; J2704; J2710; J3010; J7120

== ENCOUNTER 2016-11-10 10:57 | Inpatient (IN) | payer OTHER ==
[~2016-11-10] VITALS: Ht 179.1 cm; Wt 95.9 kg
[~2016-11-10 10:57] MED LIST changes: -ACET-2605 PO; -CeFAZolin Inj 2 GM in IV Premix 1 EACH IV ONE; +DOCU-41 PO; +Ibuprofen PO; -Lactated Ringer's 1,000 ML IV SCH; +OXYC1TAB24 PO
[2016-11-10 11:10] VITALS: BP 155/105; PULSE 92; RESP 30; O2SAT 95
--- NOTE | 2016-11-10 11:14 | ED.REPORT ---
HPI-Fever Date of Service Nov 10, 2016 ED Provider: History of Present Illness: 56-year-old female here for vomiting, fever, any lower abdominal pain. Symptoms onset this morning. She had a rectocele repair and a vaginal mesh inserted 5 days ago. She had been feeling better up until this morning when she got sick. Fever at home 100.7. No diarrhea, last BM was yesterday and smaller than usual although she is on stool softeners. She is still having some vaginal discharge she states it is decreasing. Still changing her pad 3-4 times a day. No household contacts are sick. No URI symptoms Nursing Notes Stated Complaint: WEAK/VOMITING/FEVER Nursing Notes Reviewed: Yes Allergies: Coded Allergies: No Known Allergies (Unverified , 11/01/16) Scheduled Lamotrigine (Lamotrigine) 25 Mg Tablet 50 MG PO BID Morphine Sulfate ER (Morphine Sulfate ER) 15 Mg Tablet 15 MG PO QPM Polyethylene Glycol 3350 (Miralax) 17 Gm Powd.pack 17 GM PO DAILY Pregabalin (Lyrica) 50 Mg Capsule 50 MG PO MORNING Pregabalin (Lyrica) 100 Mg Capsule 100 MG PO HS Scheduled PRN ([Ibuprofen]) 800 MG TABLET 800 MG PO TID PRN PRN For Mild Pain Cyclobenzaprine (Cyclobenzaprine) 10 Mg Tablet 10 MG PO HS PRN PRN Spasm Docusate Sodium (Colace) 100 Mg Capsule 100 MG PO BID PRN PRN For Constipation Naproxen (Naproxen) 500 Mg Tab 500 MG PO BID PRN PRN For Pain General Time Seen by MD: 11:07 Chief Complaint Fever currently, Vomiting Hx Obtained From: Patient Arrived By: Walk-in Onset Occurred: 1 - 4 hours ago Context of Onset: Post-op Symptom Duration: Constant Location: : Abdomen: Pelvis Radiation: Does not radiate Severity: Current: Mild Severity: Maximum: Mild Recent Healthcare: Recent hospitalization, Previous surgery Similar Sx Previous: No Past Medical History Past Medical History Notes: Vaginal mesh insert and rectocele repair 10/2016 Past Medical History carpal tunnel Past Surgical History right ankle surgery nose reconstruction Recent Hep C diagnosis recurring cellulitis of the R lower limb Reports: Appendectomy, Cholecystectomy, Hysterectomy, Tonsillectomy Reports: Tubal ligation Smoking History Current Every Day Smoker 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 Alcohol Use: "Social" Drug Use: Denies drug use Other Social History: Lives with children Ambulatory Status Independent Review of Systems Constitutional: Reports: Chills, Fatigue, Fever Eyes: Denies: Eye pain left Ears / Nose / Throat: Denies: Earache bilateral, Nasal congestion, Nose bleeding, Sinus problem, Sore throat, Throat pain Respiratory: Denies: Dyspnea on exertion, Non-productive cough Cardiovascular: Denies: Chest pain, Dyspnea on exertion, Edema GI: Reports: Abdominal pain, Nausea, Vomiting, Denies: Bloody/tarry stool, Diarrhea Female: Denies: Dysuria Neurologic: Denies: Change LOC, Confusion, Dizziness Complete sys rev & neg: except as marked. Physical Exam Initial Vital Signs Vital Signs (First) Date Time Temp Pulse Resp B/P Pulse Ox O2 Delivery O2 Flow Rate FiO2 11/10/16 11:10 38.2 92 30 155/105 95 Room Air Initial VS: Reviewed, Vital signs abnormal General/Constitutional: Awake, Alert, Well appearing Neck: Supple, No meningismus, Full range of motion, No adenopathy, No swelling , Non-tender, No masses Respiratory / Chest: Breath sounds NL, Breath sounds = bilat, No respiratory distress, No rales, No rhonchi, No wheezing, No retractions, No stridor Cardiovascular: Heart rate NL, Regular rhythm, Heart sounds NL, No murmurs, Peripheral circulation NL Skin: Color NL, No rash, Warm, Dry, Turgor NL, No swelling Neurologic: Oriented X3, Speech NL, No motor deficits, No sensory deficits Head / Eyes: Normocephalic, PERRL, No periorbital redness, No periorbital swelling, No photophobia, Conjunctiva NL ENT: Airway patent, Mucous membranes moist, Pharynx NL, Tympanic membs NL, Ext aud canal NL, Mastoid area NL, Nose exam NL, No sinus tenderness, Gums/ dentition NL Abdomen: Atraumatic, Soft, No guarding, No rebound, BS normoactive, No distention Tenderness/Guarding/Rebound: Positive: Tender LLQ... (Moderate), Tender suprapubic Back: Inspection NL, Non-tender, No CVA tenderness Interpretation & Diagnostics Lab Results Interpretation Result Diagram: 11/10/16 1115 11/10/16 1115 Test 11/10/16 11:15 11/10/16 13:19 11/10/16 13:24 White Blood Count 9.9th/mm3 (3.8-10.1) Red Blood Count 4.05mil/mm3 (3.90-5.20) Hemoglobin 12.8g/dL (12.0-15.6) Hematocrit 36.5% (35.0-46.0) Mean Corpuscular Volume 90.1fL (81-100) Mean Corpuscular Hemoglobin 31.6pg (27.0-35.0) Mean Corpuscular Hemoglobin Concent 35.1% (32.0-37.0) Red Cell Distribution Width 11.6% (12.3-15.4) Platelet Count 97bil/L (150-400) Neutrophils (%) (Auto) 75.5% (40-74) Lymphocytes (%) (Auto) 14.7% (14-46) Monocytes (%) (Auto) 8.8% (4-12) Eosinophils (%) (Auto) 0.6% (0-5) Basophils (%) (Auto) 0.2% (0-3) Sodium Level 137mEq/L (134-144) Potassium Level 4.3mEq/L (3.5-5.2) Chloride Level 100mEq/L (97-108) Carbon Dioxide Level 24mmol/L (18-29) Blood Urea Nitrogen 9mg/dL (6-24) Creatinine 0.61mg/dL (0.57-1.00) Estimat Glomerular Filtration Rate 144mL/min (>59) Glucose Level 109mg/dL (60-99) Calcium Level 8.8mg/dL (8.5-10.1) Magnesium Level 1.5mg/dL (1.6-2.6) Total Bilirubin 0.5mg/dL (0.0-1.2) Aspartate Amino Transf (AST/SGOT) 36U/L (0-50) Alanine Aminotransferase (ALT/SGPT) 18U/L (0-32) Alkaline Phosphatase 116U/L (25-150) Total Protein 6.6g/dL (6.4-8.4) Albumin 3.6g/dL (3.4-5.0) Lipase 26U/L (13-60) Hold Garcia Top Tube Received (Received) Urine Color Yellow (YELLOW) Urine Appearance Clear (CLEAR,HAZY) Urine pH 8.5 (5.0-8.0) Urine Specific [place] 1.015 (1.003-1.035) Urine Protein Negativemg/dL (NEG,TRACE) Urine Glucose (UA) Negativemg/dL (NEGATIVE) Urine Ketones Negativemg/dL (NEGATIVE) Urine Occult Blood Moderate (NEGATIVE) Urine Nitrite Negative (NEGATIVE) Urine Bilirubin Negative (NEGATIVE) Urine Urobilinogen Normalmg/dL (NORMAL) Urine Leukocyte Esterase Negative (NEGATIVE) Urine RBC 11-50/hpf (0-2) Urine WBC 0-5/hpf (0-5) Urine Epithelial Cells Few/hpf (NONE-MOD) Urine Crystals None seen (NONE SEEN) Urine Bacteria Few/hpf (NONE-FEW) Urine Hyaline Casts None/lpf (NONE) Urine Granular Casts None seen (NONE SEEN) Urine Waxy Casts None seen (NONE SEEN) Urine Red Blood Cell Casts None seen (NONE SEEN) Urine White Blood Cell Casts None seen (NONE SEEN) Urine Mucus None seen (None Seen) Urine Trichomonas None seen (NONE SEEN) Urine Yeast None (NONE SEEN) Urinalysis Comment None Urine Culture Reflexed Not indicated Phosphorus Level 1.7mg/dL (2.5-4.9) Procalcitonin 0.08ng/mL (0.00-0.08) Re-Eval/Medical Decision Med Decision/Clinical Course Dr García paged immediately upon pt arrival in ER, will come down for consult 1315- dr garcía at bedside for exam, will admit Discharge & Departure Shift Change Sign-Out Laboratory Evaluation: Lab evaluation discussed Imaging Studies: Imaging discussed Procedures: Results discussed Response to Therapy: Unchanged Impression: Primary Impression: Fever Fever type: unspecified Qualified Code: R50.9 - Fever, unspecified Additional Impression: Post-operative infection Disposition: ADMITTED TO HOSPITAL Discharge Condition All VS Reviewed: Yes Condition: Stable Referrals: Sage De Leon MD (PCP) Ulises García MD EDSupervising Provider for APC: Zenon Proctor MD, Linnea K ARNP Nov 10, 2016 11:14
[2016-11-10] MEDS ORDERED: Ondansetron 2 mg/mL 2 mL Inj IVPUSH ONE (11:15)
[2016-11-10] MEDS ORDERED: 0.9% Sodium Chloride 1,000 ML IV ONE (11:15)
[2016-11-10 11:30] LABS: BASOPHILS % (AUTO) 0.2 % (0-3); EOSINOPHILS % (AUTO) 0.6 % (0-5); MONOCYTES % (AUTO) 8.8 % (4-12); Mean Corpuscular Hemoglobin 31.6 pg (27.0-35.0); Mean Corpuscular Volume 90.1 fL (81-100); NEUTROPHILS % (AUTO) 75.5 % (40-74); Platelet Count 97 bil/L (150-400)
[2016-11-10 12:12] LABS: Magnesium 1.5 mg/dL (1.6-2.6)
[2016-11-10 12:46] VITALS: BP 124/51; PULSE 91; RESP 19; O2SAT 94
[2016-11-10] MEDS ORDERED: Vancomycin Dose per Pharmacist XX SCH (13:20)
[2016-11-10] MEDS ORDERED: Polyethylene Glycol (PEG) 17 Gm Powder PO PRN (13:25)
[2016-11-10] MEDS ORDERED: Alum-Mag Hydrox-Simeth 30 mL Suspension PO PRN (13:25)
[2016-11-10] MEDS ORDERED: fentaNYL-PF 50 mCg/mL 2 mL Inj ONE (13:28)
[2016-11-10] MEDS ORDERED: Vancomycin Inj 1,750 MG in 0.9% Sodium Chloride 500 ML IV ONE (13:35)
[2016-11-10] MEDS ORDERED: Piperacillin-Tazo 3.375 Gm Inj 3.375 GM in Dextrose 5% Minibag Plus 50 ML IV ONE (13:39)
--- NOTE | 2016-11-10 14:01 | PCM.HPMED ---
Subjective Date of Service Nov 10, 2016 Primary Provider: Admitting Physician: Ulises García MD HAND REAMER Primary Care Physician: Sage De Leon MD Attending Physician: Ulises García MD HAND REAMER Admit Status: From the Emergency Department Chief Complaint: Acute onset fevern nausea, vomiting, and sharp LLQ abdominal pain this morning, now 5 days s/p rectocele repair. History of Present Illness: This is a 56-year-old female with hx of Hep C reportedly cleared infection, and now 5 days s/p posterior colporrhaphy and mid urethral trans-obturator sling placement on November 06, 2016. Patient presented to the [facility] ED complaining of acute onset fever, nausea, vomiting, and sharp left lower quadrant abdominal pain that becomes worse when she presses in that area. Symptoms onset this morning. She had been feeling fine without postoperative complaint up until this morning when she became ill. Review of the post operative procedure note revealed an uncomplicated procedure and hospital course. Patient had a cystoscopy during the procedure that showed intact bladder mucosa and urethra improper placement of bladder sling. Patient was kept overnight for pain management and did well and was discharged the next morning. At that time patient was doing well ambulating, tolerating regular food , and her López was removed as was the vaginal packing. Patient had no bleeding at that time. Her pain was well controlled. Denies headache, cough, shortness of breath, dyspnea, sore throat, vision changes, slurred speech, focal neurological signs, hematuria, hematochezia, melena, constipation, diarrhea, last BM was yesterday and smaller than usual although she is on stool softeners. She is still having some vaginal discharge she states it is decreasing. Still changing her pad 3-4 times a day. No household contacts are sick. Note patient was not given antibiotics on discharge. At home this morning reported a fever of 100.7. In the ED patient had vital signs: Patient received 1 L of IV fluids. He is given Toradol for pain, and IV Zofran for her nausea, which reportedly helped. T 38.2 Celsius, BP 155/105, heart rate 92, respiratory rate 30, 97% on room air. Chem panel: Sodium 137, chloride 100, potassium 4.3, CO2 24, BUN/creatinine 9, creatinine 0.61, glucose 109, magnesium was 1.5 and low, lactic acid was elevated at 2.2. Patient had bladder scan done that showed a 1 hour PVR of 216 mL. Single speculum exam of the vaginal area showed the suburethral sling incision to be intact and unremarkable. Inspection of the posterior colporrhaphy incision was notable specially in the sense that was exquisitely tender. Although the suture line appeared to be intact could not be assured by visualization the patient's extreme tenderness. In addition vaginal discharge is noted with purulent and malodorous. No no rectovaginal examination was performed due to the patient's pain and tenderness but instead decision was made to perform a pelvic CT scan be sure that there is no fluid collections or abscess formation in the rectovaginal septum. Review of Systems: A comprehensive review of systems was conducted and was negative except as mentioned in history of present illness. Allergies Coded Allergies: No Known Allergies (Unverified , 11/01/16) Home Medications Estrogens Conjugated (Premarin) 1 Gm Vagcream 0.5 GM VG 2xweek Lamotrigine (Lamotrigine) 25 Mg Tablet 50 MG PO BID Morphine Sulfate ER (MS Contin) 30 Mg Tablet.er 30 MG PO BID Polyethylene Glycol 3350 (Miralax) 17 Gm Powd.pack 17 GM PO DAILY Pregabalin (Lyrica) 50 Mg Capsule 50 MG PO TID Sofosbuvir/Velpatasvir (Epclusa 400 mg-100 mg Tablet) 400 Mg-100 Mg Tablet 1 EACH PO DAILY PRN ([Ibuprofen]) 800 MG TABLET 800 MG PO TID PRN PRN For Mild Pain Cyclobenzaprine (Cyclobenzaprine) 10 Mg Tablet 10 MG PO HS PRN PRN Spasm Docusate Sodium (Colace) 100 Mg Capsule 100 MG PO BID PRN PRN For Constipation Naproxen (Naproxen) 500 Mg Tab 500 MG PO BID PRN PRN For Pain Ondansetron (Ondansetron) 4 Mg Tablet 4 MG PO PRN For Nausea oxyCODONE-Acetaminophen 5-325 mg (oxyCODONE-Acetaminophen 5-325 mg) 1 Each Tablet 1-2 TAB PO Q4H PRN PRN For Moderate Pain PMH Vaginal mesh insert and rectocele repair 10/2016 Hx of Hepatitis C, reports cleared infection Surgical History Vaginal mesh insert and rectocele repair 10/2016 carpal tunnel right ankle surgery X8 for 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 reconstruction Reports: Appendectomy, Cholecystectomy, Hysterectomy, Tonsillectomy Reports: Tubal ligation Family History Daughter with Hodgkins lymphoma Father with CAD alive age 88 Social History Hx Alcohol Use: No (quit 7 months ago) Hx Substance Use: No (remote hx of cocaine use) Hx Tobacco Use: No Smoking Status: Former Smoker (Quit 7 month ago) Living Arrangement: with Family Exam Vital Signs Vital Sign - Last Date Time Temp Pulse Resp B/P Pulse Ox O2 Delivery O2 Flow Rate FiO2 11/10/16 12:46 91 19 124/51 94 Room Air 11/10/16 11:10 38.2 Exam General: Patient is alert oriented 3 speaking in full sentences, appears in moderate distress, appears ill, lying in bed. HEENT: NC/AT, eyes, PERRLA, EOMI, neck, soft supple, no adenopathy, no JVD, no masses, no thyromegaly, throat mucous membranes pink and Dry, no erythema. Lungs: Mild diffuse crackles, otherwise adventitious lung sounds, no use of accessory muscles of respiration, good air movement, good respiratory effort. Heart: Regular rate and rhythm, grade 1/6 early systolic murmur with some radiation to the neck, no rub, no click, no distant heart sounds, Abdomen: Soft, tender in the left lower quadrant more than the right lower quadrant, nondistended, bowel sounds hypoactive, no rebound, voluntary guarding, Genitourinary: No CVA tenderness, no suprapubic tenderness, no López catheter, Extremities: pulses equal and symmetric upper/lower extremity including radial and dorsalis pedis, no edema, patient is tender calf on the left with dorsiflexion of the foot on the left but this does not seem unusual for this patient as she has chronic back pain lower extremity is do not appear swollen. Neurologic: Grossly neurologically intact, beaking in full sentences, no focal neurological signs. Skin: Has subcentimeter macular rash appearing on the dorsal aspects and ventral aspects of the upper extremity. There are scattered and number between 5 and 8 on the left and 4-5 on the right. Psychiatric: Mood is cheerful and mood and affect are congruent and appropriate. Lab and Diagnostics Result Diagram: 11/10/16 1115 11/10/16 1115 Assessment & Plan # Rectovaginal septum cellulitis status post rectocele repair on November 06, 2016, present on admission, active - Admission for observation secondary to severity of presenting symptoms, treatment planning complexity of clinical workup. - Single speculum exam of the vaginal area showed the suburethral sling incision to be intact and unremarkable. Inspection of the posterior colporrhaphy incision was notable specially in the sense that was exquisitely tender. Although the suture line appeared to be intact could not be assured by visualization the patient's extreme tenderness. In addition vaginal discharge is noted with purulent and malodorous. No no rectovaginal examination was performed due to the patient's pain and tenderness but instead decision was made to perform a pelvic CT scan be sure that there is no fluid collections or abscess formation in the rectovaginal septum. # Sepsis, present on admission, active - Vital signs, temperature 38.2, pulse 92, respiratory rate 30, blood pressure 155/105, 97% on room air. - Wells score is 2, patient does have left lower extremity pain in the calf. - White blood cells 9.9, H/H 12.8/36.5, - Lactic acid was elevated at 2.2 - Blood culture 2 sets of 2 taken prior to start of IV antibiotics. - Urine culture ordered and pending, urine dipstick was negative for white cells or blood. - IV fluids normal saline 125 mL per hour - Broad-spectrum antibiotics started Vanco and Zosyn - CT pelvis without contrast. - Bladder scans Q0H with instructions to call integration project manager HAND REAMER if PVR > 400 ml. - D-dimer ordered and pending - We'll trend lactic acid # Hypomagnesemia, present on admission, active - Magnesium 1.5 - We'll replete magnesium level #Hyperglycemia, present remission, active, - Glucose of 109 - Continue to monitor Disposition: Admitted to observation service with expected length of stay to be determined, secondary to severity of presenting symptoms, treatment plan, complexity of clinical work up, and risk of adverse events. CODE STATUS: Full code PCP: Sage De Leon M.D. DVT PE prophylaxis: SCD's Contact: Pain Evaluation: Adequate Pain Control VTE Prophylaxis: SCDs VTE Mechanical Devices: Intermittant Pneumatic CD Resuscitation Status: CPR: Attempt Resuscitation Attending Statement I personally attended and participated in the evaluation and examination of this patient as well as the clinical decision-making and management. I further attest to the accuracy of the information contained in this admission H&P. copies to: Sage De eLon MD; Juan Upton MD, Benjamin DO Nov 10, 2016 14:01 Ulises García MD Nov 10, 2016 14:57
[2016-11-10 14:11] LABS: APPEARANCE,URINE CLEAR (CLEAR,HAZY); COLOR,URINE YELLOW (YELLOW); OCCULT BLOOD,URINE MODERATE (NEGATIVE); PH,URINE 8.5 (5.0-8.0); UROBILINOGEN,URINE NORMAL (NORMAL)
--- NOTE | 2016-11-10 14:22 | DRSVH ---
PROCEDURE: X-RAY CHEST, TWO VIEWS ([id number]) INDICATIONS: other TECHNIQUE: 2 views of the chest were acquired. COMPARISON: None. FINDINGS: Surgical changes and devices: None. Lungs and pleura: No pleural effusions or pneumothorax. Lungs are abnormal with a left mid and lowe r lung pneumonia. Mediastinum: Mediastinal contours are normal. Heart size is normal. Bones and chest wall: No suspicious bony abnormalities. Soft tissues appear unremarkable. IMPRESSION: Left mid and lower lung pneumonia Dictated by: Ab Chowdary M.D. on 11/10/2016 at 14:20 Approved by: Ab Chowdary M.D. on 11/10/2016 at 14:20
[2016-11-10 14:30] LABS: Phosphorus 1.7 mg/dL (2.5-4.9)
--- NOTE | 2016-11-10 14:37 | DRSVH ---
PROCEDURE: CT PELVIS WITHOUT CONTRAST ([id number]) INDICATIONS: Rectovaginal cellulitis s/p rectocele repair. TECHNIQUE: After the administration of oral contrast, 5 mm thick sections acquired from the iliac crests to the symphysis. 5 mm coronal and sagittal reformats were then performed. For radiation dose reduction, t he following was used: automated exposure control, adjustment of mA and/or kV according to patient s ize. COMPARISON: None. FINDINGS: Image quality: Diminished by absence of oral and intravenous contrast somewhat. Peritoneum and bowel: Bowel loops demonstrate normal wall thickness and caliber. No free fluid or a ir. Genitourinary: Bladder wall thickness is normal. Nodes and vessels: No iliac, pelvic, or inguinal adenopathy by size criteria. Iliac vessels demonst rate normal size. Bones: No suspicious bony lesions. Pelvic ring and hip joints appear intact. Miscellaneous: No inguinal hernias. IMPRESSION: Mild edema in the low soft tissues of the pelvis at the midline, expected in this recent postoperative patient. No evidence of operative complication such as hematoma or abscess. Dictated by: Ab Chowdary M.D. on 11/10/2016 at 14:35 Approved by: Ab Chowdary M.D. on 11/10/2016 at 14:36
[2016-11-10 14:39] VITALS: BP 123/61; PULSE 82; RESP 25; O2SAT 95
[2016-11-10 14:59] VITALS: BP 104/67; PULSE 87; RESP 18; O2SAT 95
[2016-11-10] MEDS: Ondansetron 2 mg/mL 2 mL Inj IVPUSH PRN ×2 (15:20→19:31)
[2016-11-10] MEDS: fentaNYL-PF 50 mCg/mL 2 mL Inj IVPUSH PRN ×2 (15:21→20:42)
[2016-11-10] MEDS: 0.9% Sodium Chloride 1,000 ML IV SCH ×2 (16:04→21:24)
[2016-11-10] MEDS: Sodium Chloride LOK Flush 10 mL Syringe IVFLUSH SCH ×2 (16:06→22:04)
--- NOTE | 2016-11-10 16:16 | PCM.PHAPRO ---
Progress Vancomycin Management by Pharmacy: -Indication: rectovaginal septum cellulitis s/p vaginal mesh insert and rectocele repair Oct 2016 -56 yo female, ht 70.5", wt 95.9kg, serum creatinine 0.61, est clearance~ 125ml/ min -lactic acid 2.2, Tmax 38.2, wbc 9.9 -Concurrent antibiotics: Zosyn 3.375gm iv [id number] -blood cultures x 2 taken prior to antibiotic administration -Plan: Vancomycin 1.75gm x 1 given as a loading dose at 1330. Will continue with a maintenance dose of 1gm iv [id number] (02-08-13) Trough level will be drawn prior to the 4th dose (at 1330 on 11/11). Serum creatinine has been ordered to monitor renal function Keyonna Quinn [facility] Nov 10, 2016 16:16
[2016-11-10] MEDS ORDERED: PREG50CA PO (16:36)
[2016-11-10] MEDS ORDERED: PREG100C PO (16:36)
[2016-11-10] MEDS ORDERED: MORP-32 PO (16:48)
--- NOTE | 2016-11-10 16:48 | NUR ---
Admit Note Pt transferred to 1017 from ED via stretcher @ 1500. Vanco infusing, RA, vitals stable, c/o 7/10 lower abdominal pain & nausea, fentanyl 50mcg, zofran 8mg admin w/ a good effect, nausea controlled, pain 3/10. Admit completed by primary RN, patient recently discharged from hospital, recalled values for medical history, admit RN completed med rec. Patient has 4 days left of a specific Hep C drug series, once med brought by Md martha to order & medication to be labeled in the pharmacy. NS currently infusing @ 125ml/hr.
[2016-11-10] MEDS ORDERED: Piper-Tazo 3.375 Gm/50 mL D5W Minibag Plus - Q8H over 4 hrs IV SCH ×4 (18:00)
[2016-11-10] MEDS ORDERED: .Epic Conversion Completed XX PRN (19:30)
[2016-11-10] MEDS ORDERED: lamoTRIgine 25 mg Tablet PO SCH (20:30)
[2016-11-10 21:36] VITALS: BP 129/75; PULSE 64; RESP 20; O2SAT 98
--- NOTE | 2016-11-10 21:53 | PCM.PNMED ---
Subjective Date of Service Nov 10, 2016 Subjective Patient still doesn't feel well. Exam Vital Signs Vital Sign - Last Date Time Temp Pulse Resp B/P Pulse Ox O2 Delivery O2 Flow Rate FiO2 11/10/16 21:36 36.3 64 20 129/75 98 Room Air Lab and Diagnostics D-Dimer .97 (N < .5). Could be due simply to post op status but can't R/O occult DVT w/ left calf tenderness. Lactic acid trending downward. Result Diagram: 11/10/16 1115 11/10/16 1115 X-Rays, CTs and MRIs PROCEDURE: X-RAY CHEST, TWO VIEWS ([id number]) INDICATIONS: other TECHNIQUE: 2 views of the chest were acquired. COMPARISON: None. FINDINGS: Surgical changes and devices: None. Lungs and pleura: No pleural effusions or pneumothorax. Lungs are abnormal with a left mid and lower lung pneumonia. Mediastinum: Mediastinal contours are normal. Heart size is normal. Bones and chest wall: No suspicious bony abnormalities. Soft tissues appear unremarkable. IMPRESSION: Left mid and lower lung pneumonia Dictated by: Ab Chowdary M.D. on 11/10/2016 at 14:20 Approved by: Ab Chowdary M.D. on 11/10/2016 at 14:20 Assessment & Plan # Rectovaginal septum cellulitis status post rectocele repair on November 06, 2016, present on admission, active - Admission for observation secondary to severity of presenting symptoms, treatment planning complexity of clinical workup. - Single speculum exam of the vaginal area showed the suburethral sling incision to be intact and unremarkable. Inspection of the posterior colporrhaphy incision was notable specially in the sense that was exquisitely tender. Although the suture line appeared to be intact could not be assured by visualization the patient's extreme tenderness. In addition vaginal discharge is noted with purulent and malodorous. No no rectovaginal examination was performed due to the patient's pain and tenderness but instead decision was made to perform a pelvic CT scan be sure that there is no fluid collections or abscess formation in the rectovaginal septum. # Pneumonia, probable HCAP # Elevated d-Dimer - May be due to post-op status but cannot exclude occult DVT with tenderness in left calf. # Sepsis, present on admission, active - Vital signs, temperature 38.2, pulse 92, respiratory rate 30, blood pressure 155/105, 97% on room air. - Wells score is 2, patient does have left lower extremity pain in the calf. - White blood cells 9.9, H/H 12.8/36.5, - Lactic acid was elevated at 2.2 - Blood culture 2 sets of 2 taken prior to start of IV antibiotics. - Urine culture ordered and pending, urine dipstick was negative for white cells or blood. - IV fluids normal saline 125 mL per hour - Broad-spectrum antibiotics started Vanco and Zosyn - CT pelvis without contrast. - Bladder scans Q0H with instructions to call breast surgeon MARINE CARGO INSPECTOR if PVR > 400 ml. - D-dimer ordered and pending - We'll trend lactic acid # Hypomagnesemia, present on admission, active - Magnesium 1.5 - We'll replete magnesium level #Hyperglycemia, present remission, active, - Glucose of 109 - Continue to monitor PLAN: Hospitalist service consultation for assistance with medical management of probable hospital acquired pneumonia with associated sepsis and possible occult DVT. CODE STATUS: Full code PCP: Sage De Leon M.D. DVT PE prophylaxis: SCD's Contact: VTE Prophylaxis: SCDs VTE Mechanical Devices: Intermittant Pneumatic CD Resuscitation Status: CPR: Attempt Resuscitation Ulises García MD Nov 10, 2016 9:53 pm
[2016-11-10] MEDS ORDERED: Vancomycin 1 Gm/200 mL NS Premix IV SCH (22:00)
--- NOTE | 2016-11-10 23:44 | PCM.CHPMED ---
Subjective Date of Service: Nov 10, 2016 Primary Physician: Admitting Physician: Ulises García MD Primary Care Physician: Sage De Leon MD Attending Physician: Ulises García MD Chief Complaint: Chief Complaint: Left lower quadrant abdominal pain, right lower leg pain History of Present Illness: Patient is a 56-year-old female with history of Hep C reportedly cleared infection, and now 5 days s/p posterior colporrhaphy and mid urethral trans- obturator sling placement on November 06, 2016. Patient presented to the [facility] ED complaining of acute onset fever, nausea, vomiting, and sharp left lower quadrant abdominal pain. She reports she had been feeling fine without postoperative complaint up until this morning when she became ill. Review of the post operative procedure note revealed an uncomplicated procedure and hospital course. Patient had a cystoscopy during the procedure that showed intact bladder mucosa and urethra improper placement of bladder sling. Patient was kept overnight for pain management and did well and was discharged the next morning. At that time patient was doing well ambulating, tolerating regular food , and her López was removed as was the vaginal packing. Patient had no bleeding at that time. Her pain was well controlled. Patient eventually had been admitted for rectovaginal septum cellulitis. Today patient reports that she quit smoking 8 months ago and since then she has daily cough with thick, brown mucus. She noted increased shortness of breath and cough over the last couple of weeks. She denies chest pain, but reports pleuritic chest pain when coughing. She denies sore throat, vision changes, slurred speech, focal neurological signs, hematuria, hematochezia, melena, diarrhea. She continues to have severe left lower quadrant abdominal pain. She had some troubles with bowel movement over the last couple days, even though she started taking stool softeners. She is still having some vaginal discharge she states it is decreasing. Still changing her pad 3-4 times a day. She also reports right lower extremity pain and history of previous DVT. No household contacts are sick. Patient lives with her boyfriend, her daughter and granddaughter. 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 Review of Systems: Comprehensive review of systems was conducted with the patient and was found to be negative with exception with has been noted in the history of present illness. 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 reconstruction Reports: Appendectomy, Cholecystectomy, Hysterectomy, Tonsillectomy Reports: Tubal ligation Home Medications Estrogens Conjugated (Premarin) 1 Gm Vagcream 0.5 GM VG 2xweek Lamotrigine (Lamotrigine) 25 Mg Tablet 50 MG PO BID Morphine Sulfate ER (MS Contin) 30 Mg Tablet.er 30 MG PO BID Polyethylene Glycol 3350 (Miralax) 17 Gm Powd.pack 17 GM PO DAILY Pregabalin (Lyrica) 50 Mg Capsule 50 MG PO TID Sofosbuvir/Velpatasvir (Epclusa 400 mg-100 mg Tablet) 400 Mg-100 Mg Tablet 1 EACH PO DAILY PRN ([Ibuprofen]) 800 MG TABLET 800 MG PO TID PRN PRN For Mild Pain Cyclobenzaprine (Cyclobenzaprine) 10 Mg Tablet 10 MG PO HS PRN PRN Spasm Docusate Sodium (Colace) 100 Mg Capsule 100 MG PO BID PRN PRN For Constipation Naproxen (Naproxen) 500 Mg Tab 500 MG PO BID PRN PRN For Pain Ondansetron (Ondansetron) 4 Mg Tablet 4 MG PO PRN For Nausea oxyCODONE-Acetaminophen 5-325 mg (oxyCODONE-Acetaminophen 5-325 mg) 1 Each Tablet 1-2 TAB PO Q4H PRN PRN For Moderate Pain Allergies: Coded Allergies: No Known Allergies (Unverified , 11/01/16) Family History Family History CAD, on the father's side Social History Hx Alcohol Use: Yes (8 months sober)Hx Substance Use: Yes (cocaine, stopped years ago)Hx Tobacco Use: No Smoking Status: Former Smoker (Quit 7 month ago) Living Arrangement: with Family Exam Vital Signs Vital Sign - Last Date Time Temp Pulse Resp B/P Pulse Ox O2 Delivery O2 Flow Rate FiO2 11/10/16 21:36 36.3 64 20 129/75 98 Room Air General: Alert, Oriented X3, Cooperative, No Acute Distress Head: Normal Eyes: Scleral Anicteric Mouth: Mucous Membranes Dry Chest & Lungs: Chest Wall Normal, Clear to auscultation & percussion Cardiovascular: Regular Rate/Rhythm, No Murmurs/Rubs/Gallops Abdomen: Tender (lower quadrant, left) Musculoskeletal: Other (right lower extremity tender to palpation, gastrochnemius muscle) Extremities: Warm, No Edema Neurological: Grossly Neurologically Intact Lymphatic: Cervical (mildly enlarged) Lab and Diagnostics Result Diagram: 11/10/16 1115 11/10/16 1115 X-Rays, CTs and MRIs PROCEDURE: X-RAY CHEST, TWO VIEWS ([id number]) INDICATIONS: other TECHNIQUE: 2 views of the chest were acquired. COMPARISON: None. FINDINGS: Surgical changes and devices: None. Lungs and pleura: No pleural effusions or pneumothorax. Lungs are abnormal with a left mid and lower lung pneumonia. Mediastinum: Mediastinal contours are normal. Heart size is normal. Bones and chest wall: No suspicious bony abnormalities. Soft tissues appear unremarkable. IMPRESSION: Left mid and lower lung pneumonia Dictated by: Ab Chowdary M.D. on 11/10/2016 at 14:20 Approved by: Ab Chowdary M.D. on 11/10/2016 at 14:20 PROCEDURE: CT PELVIS WITHOUT CONTRAST ([id number]) INDICATIONS: Rectovaginal cellulitis s/p rectocele repair. TECHNIQUE: After the administration of oral contrast, 5 mm thick sections acquired from the iliac crests to the symphysis. 5 mm coronal and sagittal reformats were then performed. For radiation dose reduction, the following was used: automated exposure control, adjustment of mA and/or kV according to patient size. COMPARISON: None. FINDINGS: Image quality: Diminished by absence of oral and intravenous contrast somewhat. Peritoneum and bowel: Bowel loops demonstrate normal wall thickness and caliber. No free fluid or air. Genitourinary: Bladder wall thickness is normal. Nodes and vessels: No iliac, pelvic, or inguinal adenopathy by size criteria. Iliac vessels demonstrate normal size. Bones: No suspicious bony lesions. Pelvic ring and hip joints appear intact. Miscellaneous: No inguinal hernias. IMPRESSION: Mild edema in the low soft tissues of the pelvis at the midline, expected in this recent postoperative patient. No evidence of operative complication such as hematoma or abscess. Dictated by: Ab Chowdary M.D. on 11/10/2016 at 14:35 Approved by: Ab Chowdary M.D. on 11/10/2016 at 14:36 Assessment & Plan Assessment This is a 56-year-old female status post posterior colporrhaphy and mid urethral trans-obturator sling placement on November 06, 2016. Patient was doing well postoperatively until this morning when she presented to emergency department complaining of severe left lower quadrant abdominal pain. She was admitted for rectovaginal septum cellulitis. Later today she started complaining of right lower leg pain. She has history of DVT in the right lower extremity a few years ago. She has elevated d-dimer at 0.97. She reports she usually has pain in that leg due to previous fracture but this pain is new. She also reports increased cough with brown sputum over the last few weeks. Chest x- ray revealed left main and lower lobe pneumonia. We have ordered US venous duplex red, bilateral, to rule out DVT since she is a high-risk patient. We also have ordered sputum culture and repeat pro-calcitonin. Her current pro- calcitonin within normal limits. We will continue vancomycin and Zosyn, wait for the sputum culture, and will adjust antibiotic if no clinical improvement. Problems: Pain Evaluation: Adequate Pain Control VTE Prophylaxis: SCDs VTE Mechanical Devices: Intermittant Pneumatic CD Resuscitation Status: CPR: Attempt Resuscitation Attending Statement The patient was seen and examined together with house staff on 11/10/2016 and I agree with the history, exam and plan as outlined in the note above. Lakeisha Vasquez DO Nov 10, 2016 23:44 Vicki Ricks DO Nov 11, 2016 05:33
[2016-11-11] MEDS ORDERED: Morphine ER 15 mg (MS Contin) Tablet PO SCH (08:30)
[2016-11-11] MEDS ORDERED: Vancomycin Serum Trough XX ONE (13:30)
== END 2016-11-11 01:28 | disposition admitted as inpatient to this hospital (09) | DRG 951 ==
LOC: SED 10:57 → OSC 14:00
PROVIDERS: ADMIT Obstetrics & Gynecology; ATTEND Obstetrics & Gynecology
DX: R69 Illness, unspecified (principal)